=== PATIENT | female | born 2000 | race Two or more races ===

== ENCOUNTER 2019-08-22 18:48 | Emergency (ER) | payer MEDICAID ==
--- NOTE | 2019-08-22 19:05 | ER Document Report ---
ED Respiratory Problem - General Chief Complaint: Chest Pain Stated Complaint: CHEST PAIN Time Seen by Provider: 08/22/19 18:48 Notes: CHIEF COMPLAINT: Cough and chest pain HPI: 19-year-old female presenting to the emergency department complaining of a mild cough with slight chest discomfort with coughing in the left chest over the last 4 days. No fever. Has had slight runny nose. Patient believes it is allergies. No shortness of breath. Patient is not on control. She denies . States that her mother brought her in to have her tested for coronavirus today because they have several immune compromised people living in their home. ROS: See HPI - all other systems were reviewed and are otherwise negative Constitutional: no fever Eyes: no drainage, no blurred vision ENT: no runny nose, no sore throat Cardiovascular: + chest pain with cough Resp: no SOB, no cough GI: no vomiting, no diarrhea, no abdominal pain : no dysuria Integumentary: no rash Allergy: no hives Musculoskeletal: no extremity pain or swelling Neurological: no numbness/tingling, no weakness MEDICATIONS: I agree with the patient medications as charted by the RN. ALLERGIES: I agree with the allergies as charted by the RN. PAST MEDICAL HISTORY/PAST SURGICAL HISTORY: Reviewed and agree as charted by RN. SOCIAL HISTORY: Reviewed and agree as charted by RN. FAMILY HISTORY: No significant familial comorbid conditions directly related to patient complaint EXAM: Reviewed vital signs as charted by RN. CONSTITUTIONAL: Alert and oriented and responds appropriately to questions. Well-appearing; well-nourished HEAD: Normocephalic; atraumatic EYES: PERRL; Conjunctivae clear, sclerae non-icteric ENT: normal nose; no rhinorrhea; moist mucous membranes; pharynx without lesions noted, no uvula edema or deviation, no tonsillar hypertrophy, phonation normal NECK: Supple without meningismus; non-tender; no cervical lymphadenopathy, no masses CARD: RRR; no murmurs, no clicks, no rubs, no gallops; symmetric distal pulses RESP: Normal chest excursion without splinting or tachypnea; breath sounds clear and equal bilaterally; no wheezes, no rhonchi, no rales, pulse oximetry 100% on room air not hypoxic. No reproducible pain on palpation of the chest wall ABD/GI: Normal bowel sounds; non-distended; soft, non-tender, no rebound, no guarding; no palpable organomegaly or masses. BACK: The back appears normal and is non-tender to palpation, there is no CVA tenderness EXT: Normal ROM in all joints; non-tender to palpation; no cyanosis, no effusions, no edema SKIN: Normal color for age and race; warm; dry; good turgor; no acute lesions noted NEURO: Moves all extremities equally; Motor and sensory function intact PSYCH: The patient's mood and manner are appropriate. Grooming and personal hygiene are appropriate. MDM: 19-year-old female presenting with chest pain with cough over the last 4 days. Only very slight cough no fever. Concerned about coronavirus because they live with immune compromised people but she has not had contact with a positive tested person and has not been traveling in the last 14 days. She states [place]. Will send flu and strep, obtain a chest x-ray. After long discussion with the patient given her concerns over the coronavirus will obtain testing today she is aware she will need to self quarantine for 14 days. Low suspicion for pulmonary embolus, TRAVEL OUTSIDE OF THE [place] IN LAST 30 DAYS: No - Related Data Allergies/Adverse Reactions: No Known Allergies Allergy (Verified 07/20/13 21:33) Past Medical History - Social History Smoking Status: Unknown if Ever Smoked Frequency of alcohol use: None Family History: Reviewed & Not Pertinent Patient has suicidal ideation: No Patient has homicidal ideation: No - Immunizations Immunizations up to date: Yes Hx Diphtheria, Pertussis, Tetanus Vaccination: Yes Physical Exam - Vital signs Vitals: Temp Pulse Resp BP Pulse Ox 98.4 F 74 14 118/74 100 08/22/19 19:13 08/22/19 19:13 08/22/19 19:13 08/22/19 19:13 08/22/19 19:13 Course - Re-evaluation Re-evalutation: 08/22/19 20:04 Strep, flu and chest x-ray were all negative for acute findings today. Patient is aware that she is considered a person under investigation at this point and should self quarantine at home for 14 days or until she has a negative test result. Low suspicion for ACS. Her chest pain is more specific to coughing episodes and she is otherwise healthy with no cardiac risk factors - Vital Signs Vital signs: Temp Pulse Resp BP Pulse Ox 98.4 F 74 14 118/74 100 08/22/19 19:13 08/22/19 19:13 08/22/19 19:13 08/22/19 19:13 08/22/19 19:13 Discharge - Discharge Clinical Impression: Cough Chest pain Qualifiers: Chest pain type: unspecified Qualified Code(s): R07.9 - Chest pain, unspecified Condition: Stable Disposition: HOME, SELF-CARE Additional Instructions: Take Motrin or Tylenol for pain. Self quarantine at home for the next 14 days or until you have a negative test result as discussed. Your strep and influenza and chest x-ray today did not show acute findings. If you have worsening symptoms return for reevaluation or follow-up with your PCP
[2019-08-22 19:54] LABS: A TYPE INFLUENZA AG NEGATIVE (NEGATIVE); B INFLUENZA AG NEGATIVE (NEGATIVE)
--- NOTE | 2019-08-22 19:54 | RADIOLOGY REPORT (SQ) ---
EXAM DESCRIPTION: CHEST SINGLE VIEW IMAGES COMPLETED DATE/TIME: 08/22/2019 6:34 pm REASON FOR STUDY: cough chest pain COMPARISON: None. EXAM PARAMETERS: NUMBER OF VIEWS: One view. TECHNIQUE: Single frontal radiographic view of the chest acquired. RADIATION DOSE: NA LIMITATIONS: None. FINDINGS: LUNGS AND PLEURA: No opacities, masses or pneumothorax. No pleural effusion. MEDIASTINUM AND HILAR STRUCTURES: No masses. Contour normal. HEART AND VASCULAR STRUCTURES: Heart normal in size. Normal vasculature. BONES: No acute findings. HARDWARE: None in the chest. OTHER: No other significant finding. IMPRESSION: NO ACUTE RADIOGRAPHIC FINDING IN THE CHEST. TECHNICAL DOCUMENTATION: JOB ID: [id number] 2010 [employer]- All Rights Reserved Reading location - IP/workstation name: [email or web address]
[2019-08-22 20:07] VITALS: BP 114/73
== END 2019-08-22 20:23 | disposition home or self-care (01) ==
LOC: ER 18:48
DX: Z20.828 Contact with and (suspected) exposure to other viral communicable diseases (principal); R05 Cough; R07.9 Chest pain, unspecified
CPT/HCPCS: 71045; 81025; 87070; 87635; 87804; 87880; 99283